=== PATIENT | female | born 1980 | race Caucasian/White ===

== ENCOUNTER 2017-01-22 22:54 | Emergency (ER) | payer MEDICAID, OTHER ==
[~2017-01-22] VITALS: Ht 162.6 cm; Wt 48.1 kg
[2017-01-22 23:36] VITALS: BP 108/72
== END 2017-01-23 03:15 | disposition home or self-care (01) ==
LOC: ER 22:57
DX: G47.00 Insomnia, unspecified (principal); F41.9 Anxiety disorder, unspecified
CPT/HCPCS: A4606; Z7610